=== PATIENT | female | born 1965 | race Caucasian/White ===

== ENCOUNTER 2019-03-09 08:09 | Outpatient (CLI) | payer OTHER | END 2019-03-09 08:11 | disposition home or self-care (01) | LOC: SONOGRAMA 08:09 | DX: E04.2 Nontoxic multinodular goiter (principal) ==

== ENCOUNTER 2021-04-09 08:03 | Outpatient (CLI) | payer OTHER | END 2021-04-09 08:19 | disposition home or self-care (01) | LOC: RAD 08:03 | PROVIDERS: ATTEND Internal Medicine Cardiovascular Disease | DX: M19.91 Primary osteoarthritis, unspecified site (principal); M46.07 Spinal enthesopathy, lumbosacral region ==

== ENCOUNTER 2025-07-05 07:19 | Outpatient (CLI) | payer OTHER | END 2025-07-05 07:27 | disposition home or self-care (01) | LOC: SONOGRAMA 07:19 | PROVIDERS: ATTEND Internal Medicine Cardiovascular Disease | DX: E03.9 Hypothyroidism, unspecified (principal); M79.671 Pain in right foot; M79.672 Pain in left foot; S90.112A Contusion of left great toe without damage to nail, initial encounter ==